=== PATIENT | male | born 1995 | race Caucasian/White ===

== ENCOUNTER 2020-02-12 16:29 | Emergency (ER) | payer OTHER ==
[~2020-02-12] VITALS: Ht 182.9 cm; Wt 93.0 kg
[2020-02-12 16:40] VITALS: Ht 182.9 cm; Wt 93.0 kg
[2020-02-12 17:15] LABS: BASOPHIL % 0.4 % (0-2); PLATELET COUNT 212 x10^3mcL (130-400); RED CELL DISTRIBUTION WIDTH 13.1 % (11.5-14.5)
[2020-02-12 17:45] VITALS: BP 149/88
== END 2020-02-12 17:45 | disposition home or self-care (01) ==
LOC: ED 16:29
PROVIDERS: Emergency Medicine
DX: U07.1 COVID-19 (principal)
CPT/HCPCS: 36415; 87804; Q0092; U0002